=== PATIENT | female | born 1985 | race Asian ===

== ENCOUNTER 2022-09-17 04:23 | Day surgery (SDC) | payer OTHER ==
[2022-07-19 16:19] VITALS: BMI 24.1
[2022-09-17] MEDS ORDERED: FENTANYL CITRATE/PF 50 MCG/ML VIAL ONE (11:25)
[2022-09-17] MEDS ORDERED: PROPOFOL 20 ML ONE (11:25)
[2022-09-17] MEDS ORDERED: ONDANSETRON 4 MG/2 ML VIAL ONE (11:25)
[2022-09-17] MEDS ORDERED: DEXAMETHASONE SOD PHOSPHATE 4 MG/1 ML VIAL ONE (11:25)
[2022-09-17] MEDS ORDERED: MIDAZOLAM HCL 2 MG/2 ML SINGLE DOSE VIAL ONE (11:52)
[2022-09-17] MEDS ORDERED: KETOROLAC TROMETHAMINE 30 MG/1 ML VIAL ONE (12:04)
[2022-09-17] MEDS ORDERED: oxyCODONE HCL 5 MG TABLET PO PRN ×2 (12:23→12:28)
[2022-09-17] MEDS ORDERED: ONDANSETRON 4 MG/2 ML VIAL IVPUSH PRN ×2 (12:23→12:28)
[2022-09-17] MEDS ORDERED: FENTANYL CITRATE/PF 50 MCG/ML VIAL IVPUSH PRN (12:23)
[2022-09-17] MEDS ORDERED: IBUPROFEN 800 MG/8 ML IJ IVPB PRN (12:28)
[2022-09-17] MEDS ORDERED: IBUPROFEN 600 MG TABLET (FP) PO PRN (12:28)
[2022-09-17] MEDS ORDERED: LACTATED RINGERS SOLUTION 1,000 ML IV SCH (12:30)
[2022-09-17] MEDS ORDERED: ELECTROLYTE-148 SOLN 1,000 ML IV SCH (12:30)
[2022-09-17 15:44] VITALS: RESP 20; TEMP 98
[2022-09-17 15:48] VITALS: BP 130/78; PULSE 85
== END 2022-09-17 15:51 | disposition home or self-care (01) ==
LOC: JASU-SURG 04:23
PROVIDERS: ATTEND Obstetrics & Gynecology
PROC: 0UDB7ZX Extraction of Endometrium, Via Natural or Artificial Opening, Diagnostic (ICD-10-PCS; 2022-09-17)
PROC: 0UJD8ZZ Inspection of Uterus and Cervix, Via Natural or Artificial Opening Endoscopic (ICD-10-PCS; 2022-09-17)
PROC: 0UB98ZZ Excision of Uterus, Via Natural or Artificial Opening Endoscopic (ICD-10-PCS; principal; 2022-09-17 11:00)
DX: D25.0 Submucous leiomyoma of uterus (principal); N97.9 Female infertility, unspecified
CPT/HCPCS: 81025; 88305-TC; 94760